=== PATIENT | male | born 1950 | race Caucasian/White ===

== ENCOUNTER 2020-08-22 11:10 | Outpatient (CLI) | payer MEDICARE | END 2020-08-22 23:59 | disposition home or self-care (01) | LOC: CT 11:10 | PROVIDERS: ATTEND Internal Medicine | DX: K91.872 Postprocedural seroma of a digestive system organ or structure following a digestive system procedure (principal); L76.34 Postprocedural seroma of skin and subcutaneous tissue following other procedure | CPT/HCPCS: 75989; 75989-TC ==